=== PATIENT | female | born 1995 | race Caucasian/White ===

== ENCOUNTER 2016-10-28 16:45 | Emergency (ER) | payer BC, MEDICAID ==
[2016-10-28 17:09] VITALS: BP 125/76
--- NOTE | 2016-10-28 17:21 | EDM.PDOC ---
ED HPI GENERAL MEDICAL PROBLEM - General Chief Complaint: Gastrointestinal Problem Stated Complaint: BLOOD IN STOOL Time Seen by Provider: 10/28/16 17:21 Source of Information: Reports: Patient History Limitations: Reports: No Limitations - History of Present Illness INITIAL COMMENTS - FREE TEXT/NARRATIVE: Cynthia presents today with complaints of blood stools off and on for three days. She reports abdominal cramping across abdomen prior to defecation. She reports the toilet is a dark red in color. She denies blood clots or difficulty with bowel movements. She denies trauma to the abdomen or rectum. She denies entry of foreign objects to the rectum. Cynthia reports she has had bloody stools before and had no further work-up. She denies excessive use of NSAIDs. She reports having irregular bowel movements with pain and cramping. She denies medical work up for food intolerances, allergies or chronic diseases. Onset Date: 10/25/16 Duration: Day(s):, Recurring Quality: Reports: Other (cramping pain prior to bowel movement. ) Improves with: Reports: None Worsens with: Reports: None - Related Data Allergies Allergy/AdvReac Type Severity Reaction Status Date / Time No Known Allergies Allergy Verified 10/28/16 17:13 Home Meds: Home Meds NK [No Known Home Meds] 10/28/16 [History] Past Medical History Oncologic (Cancer) History: Reports: Other (See Below) Other Oncologic History: RETINALBLASTOMA - Past Surgical History HEENT Surgical History: Reports: Eye Surgery, Other (See Below) Other HEENT Surgeries/Procedures: PROSTHETIC EYE (R) Social & Family History - Tobacco Use Smoking Status *Q: Current Every Day Smoker Years of Tobacco use: 4 Packs/Tins Daily: 0.5 - Caffeine Use Caffeine Use: Reports: Soda - Recreational Drug Use Recreational Drug Use: No ED ROS GENERAL - Review of Systems Review Of Systems: See Below Constitutional: Reports: Fever. Denies: Chills, Malaise, Weakness, Fatigue, Night Sweats HEENT: Reports: No Symptoms Respiratory: Denies: Shortness of Breath, Wheezing, Cough, Sputum Cardiovascular: Denies: Chest Pain, Blood Pressure Problem, Dyspnea on Exertion , Edema, Lightheadedness, Palpitations, Syncope Endocrine: Reports: No Symptoms GI/Abdominal: Reports: Abdominal Pain, Bloody Stool, Diarrhea. 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 No: Lymphadenopathy (R), Lymphadenopathy (L) Respiratory/Chest: No Respiratory Distress, Lungs Clear, Normal Breath Sounds, No Accessory Muscle Use, Chest Non-Tender Cardiovascular: Normal Peripheral Pulses, Regular Rate, Rhythm, No Edema, No Gallop, No Murmur, No Rub GI/Abdominal Exam: Soft, No Organomegaly, No Distention, No Abnormal Bruit, Other (Hyperactive bowel sounds, tenderness to LLQ with palpation. ) Rectal (Female) Exam: Normal Exam, Normal Rectal Tone. No: Bloody Stool, Hemorrhoids, Mass, Perirectal Abscess, Rectal Fissure, Tenderness Back Exam: Normal Inspection, Full Range of Motion. No: CVA Tenderness (R), CVA Tenderness (L) Extremities: Normal Inspection, Normal Range of Motion, Non-Tender, No Pedal Edema, Normal Capillary Refill Neurological: Oriented, CN II-XII Intact, Normal Cognition, Normal Gait, No Motor/Sensory Deficits Psychiatric: Normal Affect, Normal Mood Skin Exam: Warm, Dry, Intact, Normal Color, No Rash Lymphatic: No Adenopathy Course - Vital Signs Last Recorded V/S: Last Vital Signs Temp 37.9 C 10/28/16 17:12 Pulse 82 10/28/16 17:12 Resp 16 10/28/16 17:12 BP 125/76 10/28/16 17:12 Pulse Ox 98 10/28/16 17:12 - Orders/Labs/Meds Labs: Laboratory Tests 10/28/16 10/28/16 10/28/16 Range/Units 17:36 17:36 19:05 WBC 8.0 (4.5-11.0) K/uL RBC 4.36 (3.30-5.50) M/uL Hgb 13.5 (12.0-15.0) g/dL Hct 39.4 (36.0-48.0) % MCV 90 (80-98) fL MCH 31 (27-31) pg MCHC 34 (32-36) % Plt Count 368 (150-400) K/uL Neut % (Auto) 55 (36-66) % Lymph % (Auto) 35 (24-44) % Nash % (Auto) 8 H (2-6) % Eos % (Auto) 1 L (2-4) % Baso % (Auto) 1 (0-1) % Sodium 139 L (140-148) mmol/L Potassium 3.6 (3.6-5.2) mmol/L Chloride 107 (100-108) mmol/L Carbon Dioxide 26 (21-32) mmol/L Anion Gap 9.6 (5.0-14.0) mmol/L BUN 9 (7-18) mg/dL Creatinine 0.8 (0.6-1.0) mg/dL Est Cr Clr Drug Dosing 93.56 mL/min Estimated GFR (MDRD) > 60 (>60) Glucose 108 H (74-106) mg/dL Calcium 8.5 (8.5-10.1) mg/dL Urine Color Yellow Urine Appearance Clear Urine pH 7.0 (4.5-8.0) Ur Specific [place] 1.010 (1.008-1.030) Urine Protein Negative (NEGATIVE) mg/dL Urine Glucose (UA) Normal (NEGATIVE) mg/dL Urine Ketones Negative (NEGATIVE) mg/dL Urine Occult Blood Negative (NEGATIVE) Urine Nitrite Negative (NEGATIVE) Urine Bilirubin Negative (NEGATIVE) Urine Urobilinogen 1 (NORMAL) mg/dL Ur Leukocyte Esterase Negative (NEGATIVE) Urine HCG, Qual 10/28/16 Range/Units 19:05 WBC (4.5-11.0) K/uL RBC (3.30-5.50) M/uL Hgb (12.0-15.0) g/dL Hct (36.0-48.0) % MCV (80-98) fL MCH (27-31) pg MCHC (32-36) % Plt Count (150-400) K/uL Neut % (Auto) (36-66) % Lymph % (Auto) (24-44) % Nash % (Auto) (2-6) % Eos % (Auto) (2-4) % Baso % (Auto) (0-1) % Sodium (140-148) mmol/L Potassium (3.6-5.2) mmol/L Chloride (100-108) mmol/L Carbon Dioxide (21-32) mmol/L Anion Gap (5.0-14.0) mmol/L BUN (7-18) mg/dL Creatinine (0.6-1.0) mg/dL Est Cr Clr Drug Dosing mL/min Estimated GFR (MDRD) (>60) Glucose (74-106) mg/dL Calcium (8.5-10.1) mg/dL Urine Color Urine Appearance Urine pH (4.5-8.0) Ur Specific [place] (1.008-1.030) Urine Protein (NEGATIVE) mg/dL Urine Glucose (UA) (NEGATIVE) mg/dL Urine Ketones (NEGATIVE) mg/dL Urine Occult Blood (NEGATIVE) Urine Nitrite (NEGATIVE) Urine Bilirubin (NEGATIVE) Urine Urobilinogen (NORMAL) mg/dL Ur Leukocyte Esterase (NEGATIVE) Urine HCG, Qual Negative Lab work reviewed with patient. She is in agreement with plan. - Re-Assessments/Exams Free Text/Narrative Re-Assessment/Exam: 10/28/16 19:28 Patient notified of lab results, all her questions answered. She is in agreement with plan. No bowel movements while in emergency room. Patient instructed to report to a primary care provider in 7 days. She is to return for worsening. Departure - Departure Time of Disposition: 19:29 Disposition: Home, Self-Care 01 Condition: Good Clinical Impression: Abdominal pain - Discharge Information Instructions: Abdominal Pain, Adult, [id number] Referrals: PCP,None [Primary Care Provider] - Forms: ED Department Discharge Additional Instructions: You have been suffering from abdominal pain, irregular bowel movements and reported bloody stools. Your lab work was negative for acute blood loss today. Occult stool test was negative for blood. It is best for you to eat a bland diet, make an appointment this week to follow up with a primary care provider and be re-evaluated. It is in your best interest to have a colonoscopy if determined appropriate by a primary provider. Return for worsening, issues or concerns. - Assessment/Plan Assessment:: Abdominal pain Plan: Patient has been suffering from abdominal pain, irregular bowel movements and reported bloody stools. Her lab work was negative for acute blood loss today. Occult stool test was negative for blood. It is best for her to eat a bland diet, make an appointment this week to follow up with a primary care provider and be re-evaluated. It is in her best interest to have a colonoscopy if determined appropriate by a primary provider. Return for worsening, issues or concerns.
== END 2016-10-28 19:46 | disposition home or self-care (01) ==
LOC: JP.ED 16:45
DX: R10.9 Unspecified abdominal pain (principal); F17.210 Nicotine dependence, cigarettes, uncomplicated; Z79.899 Other long term (current) drug therapy; Z85.840 Personal history of malignant neoplasm of eye
CPT/HCPCS: 36415; 80048; 81003; 81025; 82272; 85025; 99284

== ENCOUNTER 2018-07-11 05:48 | Emergency (ER) | payer BC, MEDICAID ==
[2018-07-11 06:27] VITALS: BP 126/72
--- NOTE | 2018-07-11 06:52 | EDM.PDOCBH ---
<OfficerJoe - Last Filed: 07/11/18 06:47> ED HPI GENERAL MEDICAL PROBLEM - General Chief Complaint: Behavioral/Psych Stated Complaint: MEDICAL Time Seen by Provider: 07/11/18 06:19 Source of Information: Reports: Patient, RN Notes Reviewed History Limitations: Reports: No Limitations - History of Present Illness INITIAL COMMENTS - FREE TEXT/NARRATIVE: 22-year-old female presents emergency department today for psychiatric evaluation, she is brought in by law enforcement. She admits that she made statements she does not want to live anymore and is in different if anything would happen to her. She does admit to being under a lot of stress she recently started a new job she is in the process of being evicted from her apartment her prior boyfriend who is now her roommates got into a verbal argument at which time she made these comments law enforcement was called for further evaluation. When I ask her if she wants to harm herself she does not give me a straight forward answer she just states I don't care and it really doesn't matter if I live or . She does have a history of retinal blastoma which she has lost the right eye has been on several medications in the past has had difficulty with education. Has had suicidal ideation in the past. Does admit to being depressed is not interested in taking medication or counseling at this time. - Related Data Allergies Allergy/AdvReac Type Severity Reaction Status Date / Time No Known Allergies Allergy Verified 07/11/18 06:00 Home Meds: Home Meds NK [No Known Home Meds] 10/28/16 [History] Past Medical History HEENT History: Reports: Impaired Vision Gastrointestinal History: Reports: GERD FOUNDER AND CEO History: Reports: Other (See Below) Other FOUNDER AND CEO History: very bad menstrual cramps Psychiatric History: Reports: Panic Attack, Suicidal Ideation Oncologic (Cancer) History: Reports: Other (See Below) Other Oncologic History: RETINALBLASTOMA 2000 - Past Surgical History HEENT Surgical History: Reports: Eye Surgery, Other (See Below) Other HEENT Surgeries/Procedures: PROSTHETIC EYE (R) Social & Family History - Tobacco Use Smoking Status *Q: Current Every Day Smoker Years of Tobacco use: 9 Packs/Tins Daily: 0.3 - Caffeine Use Caffeine Use: Reports: Soda - Recreational Drug Use Recreational Drug Use: No ED ROS GENERAL - Review of Systems Review Of Systems: See Below Constitutional: Reports: No Symptoms HEENT: Reports: No Symptoms Respiratory: Reports: No Symptoms Cardiovascular: Reports: No Symptoms GI/Abdominal: Reports: No Symptoms : Reports: No Symptoms Psychiatric: Reports: Depression, Suicidal Ideation ED EXAM, BEHAVIORAL HEALTH - Physical Exam Exam: See Below Text/Narrative:: Orientated to person place and time, appropriately dressed, well groomed, memory to recent and remote events intact, good attention and concentration, speech is of adequate rate tone and volume, good fund of knowledge, language is appropriate, Mood and affect are depressed, no pressured thoughts, positive for suicidal ideation, denies homicidal ideation, no hallucinations visual or auditory, poor judgment, poor insight Exam Limited By: No Limitations General Appearance: Alert, WD/WN, No Apparent Distress Respiratory/Chest: No Respiratory Distress COURSE, BEHAVIORAL HEALTH COMP - Course Vital Signs: Last Vital Signs Temp 97.5 F 07/11/18 06:15 Pulse 79 07/11/18 06:15 Resp 17 07/11/18 06:15 BP 126/72 07/11/18 06:15 Pulse Ox 98 07/11/18 06:15 Departure - Departure Disposition: Home, Self-Care 01 Clinical Impression: Depressive disorder - Discharge Information Instructions: Living With Depression Referrals: PCP,None [Primary Care Provider] - Forms: ED Department Discharge Care Plan Goals: Recheck as agreed upon with the outpatient counseling provider. Please consider medications as they could be very helpful. Return sooner if worsening or concerns. <Segun Herrera - Last Filed: 07/11/18 11:39> COURSE, BEHAVIORAL HEALTH COMP - Course Re-Assessment/Re-Exam: Patient initially evaluated by Officer. Crisis intervention was consulted and finished, the discharge plan was arranged. Patient was in agreement with the plan. Departure - Departure Time of Disposition: 10:12
== END 2018-07-11 10:13 | disposition home or self-care (01) ==
LOC: JP.ED 05:48
DX: F32.9 Major depressive disorder, single episode, unspecified (principal); F17.210 Nicotine dependence, cigarettes, uncomplicated
CPT/HCPCS: 99284